=== PATIENT | female | born 2000 | race American Indian/Alaskan Native ===

== ENCOUNTER 2021-10-08 06:53 | Emergency (ER) | payer SELFPAY ==
[2021-10-08 07:13] VITALS: BP 118/70
--- NOTE | 2021-10-08 07:53 | XRay Report ---
RIGHT FOOT 3 VIEW(S) INDICATION / CLINICAL INFORMATION: injury COMPARISON: None available. FINDINGS: No fracture, dislocation, or significant soft tissue abnormality is demonstrated. No radiopaque forei gn bodies are identified. IMPRESSION: 1. No acute pathology. No significant abnormality. Signer Name: Abel Trujillo II, MD Signed: 10/08/2021 7:48 AM Workstation Name: [id number]
[2021-10-08] MEDS ORDERED: IBUPROFEN 600 MG TAB PO ONE (07:59)
--- NOTE | 2021-10-08 08:37 | XRay Report ---
RIGHT ANKLE 3 VIEW(S) INDICATION / CLINICAL INFORMATION: right ankle pain COMPARISON: None available. FINDINGS: BONES / JOINT(S): No acute fracture or subluxation. No significant arthritis. SOFT TISSUES: No significant abnormality. ADDITIONAL FINDINGS: None. IMPRESSION: 1. No acute findings. Signer Name: Aaron Howard MD Signed: 10/08/2021 8:33 AM Workstation Name: [id number]
--- NOTE | 2021-10-08 08:45 | Emergency Department Report ---
ED Lower Extremity HPI - General Chief Complaint: Extremity Injury, Lower Stated Complaint: RT FOOT INJURY/PAIN Time Seen by Provider: 10/08/21 07:38 Source: patient Mode of arrival: Ambulatory Limitations: No Limitations - History of Present Illness Initial Comments: This is a 20-year-old female nontoxic, well nourished in appearance, no acute signs of distress presents to the ED with c/o of right ankle pain 1 day. Patient stated that he had a mechanical trip and fall and injured right ankle. Patient denies any other injuries or trauma. Patient denies any numbness, tingling, fever, chills, nausea, vomiting, chest pain, shortness of breath, he adache, stiff neck. Patient denies any joint swelling or joint redness. Patient denies decreased range of motion. Patient stated has decreased gait due to pain. Patient denies any allergies or significant past medical history. MD Complaint: ankle injury -: days(s) Injury: Ankle: Right Severity: mild Severity scale (0 -10): 8 Improves With: immobilization Worsens With: weight bearing, movement, palpation Context: fall Associated Symptoms: able to partially bear weight. denies: snap/pop sensation, swelling, numbness, tingling, unable to bear weight - Related Data Previous Rx's Medication Instructions Recorded Last Taken Type Naproxen 500 mg PO Q12H PRN #12 tab 10/08/21 Unknown Rx Allergies Allergy/AdvReac Type Severity Reaction Status Date / Time No Known Allergies Allergy Verified 10/08/21 07:13 ED Review of Systems ROS: Stated complaint: RT FOOT INJURY/PAIN Other details as noted in HPI Comment: All other systems reviewed and negative Constitutional: denies: chills, fever Eyes: denies: eye pain, eye discharge, vision change ENT: denies: ear pain, throat pain Respiratory: denies: cough, shortness of breath, wheezing Cardiovascular: denies: chest pain, palpitations Endocrine: no symptoms reported Gastrointestinal: denies: abdominal pain, nausea, diarrhea Genitourinary: denies: urgency, dysuria, discharge Musculoskeletal: denies: back pain, joint swelling, arthralgia Skin: denies: rash, lesions Neurological: denies: headache, weakness, paresthesias Psychiatric: denies: anxiety, depression Hematological/Lymphatic: denies: easy bleeding, easy bruising ED Past Medical Hx - Past Medical History Previous Medical History?: No - Surgical History Additional Surgical History: wisdome tooth extraction - Social History Smoking Status: Never Smoker - Medications Home Medications: Home Medications Medication Instructions Recorded Confirmed Last Taken Type Naproxen 500 mg PO Q12H PRN #12 tab 10/08/21 Unknown Rx ED Physical Exam - General Limitations: No Limitations General appearance: alert, in no apparent distress - Head Head exam: Present: atraumatic, normocephalic - Eye Eye exam: Present: normal appearance - Neck Neck exam: Present: normal inspection, full ROM - Respiratory Respiratory exam: Absent: respiratory distress - Cardiovascular Cardiovascular Exam: Present: regular rate - Extremities Exam Extremities exam: Present: normal inspection, full ROM, tenderness, normal capillary refill. Absent: joint swelling - Expanded Lower Extremity Exam Right Hip exam: Present: normal inspection, full ROM. Absent: tenderness, swelling Upper Leg exam: Present: normal inspection, full ROM. Absent: tenderness, swelling Knee exam: Present: normal inspection, full ROM. Absent: tenderness, swelling Lower Leg exam: Present: normal inspection, full ROM. Absent: tenderness, swelling Ankle exam: Present: normal inspection, full ROM, tenderness. Absent: swelling, abrasion, laceration, ecchymosis, deformity, crepidus, dislocation, erythema, anterior draw sign Foot/Toe exam: Present: normal inspection, full ROM. Absent: tenderness, swelling Neuro vascular tendon exam: Present: no vascular compromise Gait: Positive: observed and limited by pain 1 - pain here - Back Exam Back exam: Present: normal inspection, full ROM. Absent: tenderness, CVA tenderness (R), CVA tenderness (L), muscle spasm, paraspinal tenderness, vertebral tenderness, rash noted - Neurological Exam Neurological exam: Present: alert, oriented X3 - Psychiatric Psychiatric exam: Present: normal affect, normal mood - Skin Skin exam: Present: warm, dry, intact, normal color. Absent: rash ED Course Vital Signs 10/08/21 07:11 Temperature 98.5 F Pulse Rate 97 H Respiratory 14 Rate Blood Pressure 118/70 O2 Sat by Pulse 97 Oximetry - Reevaluation(s) Reevaluation #1: 10/08/21 08:42 Patient is speaking in full sentences with no signs of distress noted. ED Lower Extremity MDM - Radiology Data [address] [address] XRay Report Signed Patient: THA CASTLE MR#: [id number] : 2000 Acct:[id number] Age/Sex: 20 / F ADM Date: 10/08/21 Loc: ED Attending Dr: Ordering Physician: ABRAN CRAFT NP Date of Service: 10/08/21 Procedure(s): XR ankle 3+V RT Accession Number(s): [id number] cc: ABRAN CRAFT NP Fluoro Time In Minutes: RIGHT ANKLE 3 VIEW(S) INDICATION / CLINICAL INFORMATION: right ankle pain COMPARISON: None available. FINDINGS: BONES / JOINT(S): No acute fracture or subluxation. No significant arthritis. SOFT TISSUES: No significant abnormality. ADDITIONAL FINDINGS: None. IMPRESSION: 1. No acute findings. Signer Name: Aaron Howard MD Signed: 10/08/2021 8:33 AM Workstation Name: [id number] Transcribed By: TL Dictated By: Aaron Howard MD Electronically Authenticated By: Aaron Howard MD Signed Date/Time: 10/08/21832 DD/ 2 TD/TT: [address] [address] XRay Report Signed Patient: THA CASTLE MR#: [id number] : 2000 Acct:[id number] Age/Sex: 20 / F ADM Date: 10/08/21 Loc: ED Attending Dr: Ordering Physician: JEFFRY JARVIS MD Date of Service: 10/08/21 Procedure(s): XR foot 3+V RT Accession Number(s): [id number] cc: JEFFRY JARVIS MD Fluoro Time In Minutes: RIGHT FOOT 3 VIEW(S) INDICATION / CLINICAL INFORMATION: injury COMPARISON: None available. FINDINGS: No fracture, dislocation, or significant soft tissue abnormality is demonstrated. No radiopaque foreign bodies are identified. IMPRESSION: 1. No acute pathology. No significant abnormality. Signer Name: Jose Villalobos II, MD Signed: 10/08/2021 7:48 AM Workstation Name: [id number] Transcribed By: TRESSA Dictated By: JOSE VILLALOBOS II, MD Electronically Authenticated By: JOSE VILLALOBOS II, MD Signed Date/Time: 10/08/21747 DD/ 7 TD/TT: - Medical Decision Making This is a 20-year-old female that presents with right ankle injury. Patient is stable and was examined by me. I referred patient to an orthopedic doctor for further evaluation for possible MRI. X-ray has been obtained and dictated by the radiologist. Patient is notified of the x-ray report with noted by the patient. Patient does have normal gait with some tenderness and no joint swelling. No ecchymosis. no joint redness or swelling. Not warm to touch. No signs of cellulites present. Patient received stephanie wrap and crutches. Patient was educated by RN how to use crutches.. Patient was instructed to RICE therapy. Patient received Motrin for pain. Patient is discharged with Motrin. At time of discharge, the patient does not seem toxic or ill in appearance. No acute signs of distress noted. Patient agrees to discharge treatment plan of care. No further questions noted by the patient. Critical care attestation.: If time is entered above; I have spent that time in minutes in the direct care of this critically ill patient, excluding procedure time. ED Disposition Clinical Impression: Right ankle injury Qualifiers: Encounter type: initial encounter Qualified Code(s): S99.911A - Unspecified injury of right ankle, initial encounter Disposition: HOME / SELF CARE / HOMELESS Is pt being admited?: No Does the pt Need Aspirin: No Condition: Stable Instructions: RICE Therapy for Routine Care of Injuries, [id number], Crutch Use, Adult, [id number] Additional Instructions: Follow-up with a orthopedic doctor in 3-5 days or if symptoms worsen and continue return to emergency room as soon as possible. No physical activity that extremity until cleared by orthopedic doctor Prescriptions: Naproxen 500 mg PO Q12H PRN #12 tab PRN Reason: Pain , Severe (7-10) Referrals: PRIMARY MD TAWANNA [Primary Care Provider] - 3-5 Days FIORDALIZA DENG MD [Staff Physician] - 3-5 Days Forms: Work/School Release Form(ED) Time of Disposition: 08:46
== END 2021-10-08 09:32 | disposition home or self-care (01) ==
LOC: ED 06:53
DX: S99.911A Unspecified injury of right ankle, initial encounter (principal); Z98.890 Other specified postprocedural states; W01.0XXA Fall on same level from slipping, tripping and stumbling without subsequent striking against object, initial encounter; Y93.89 Activity, other specified; Y92.89 Other specified places as the place of occurrence of the external cause; Y99.8 Other external cause status
CPT/HCPCS: 99283